=== PATIENT | female | born 1990 | race African-American/Black ===

== ENCOUNTER 2021-12-19 19:11 | Emergency (ER) | payer OTHER ==
[~2021-12-19] VITALS: Ht 157.5 cm; Wt 64.4 kg
[~2021-12-19 19:11] MED LIST: VENTOLIN HFA INH8 GM
[2021-12-19 19:54] LABS: URINE BILIRUBIN NEGATIVE (Negative); URINE BLOOD TRACE (Negative); URINE CLARITY CLOUDY; URINE COLOR YELLOW; URINE GLUCOSE-RANDOM* NEGATIVE (Negative); URINE KETONES TRACE (Negative); URINE PROTEIN (DIPSTICK) 1+ (Negative); URINE SPECIFIC GRAVITY >= 1.030 (1.005-1.035)
[2021-12-19 19:56] LABS: URINE LEUKOCYTES-REFLEX 3+ (Negative); URINE NITRITE-REFLEX POSITIVE (Negative)
[2021-12-19 20:06] LABS: BACTERIA-REFLEX >30 Many /HPF (None Seen); SQUAMOUS 4-10 Moderate /LPF (0-3); URINE WBC-REFLEX >25 Many /HPF (0-5)
[2021-12-19 20:07] LABS: URINE RBC 1-2 Rare /HPF (NONE SEEN)
[2021-12-19 20:08] LABS: CASTS None Seen /LPF (None Seen); CRYSTALS None Seen /LPF (None Seen)
[2021-12-19] MEDS ORDERED: MACROBID 100 M100 MG PO (20:10)
[2021-12-19] MEDS ORDERED: DOXYCYCLINE 10100 M2 PO (20:10)
[2021-12-19 20:31] VITALS: BP 129/79
== END 2021-12-19 20:35 | disposition home or self-care (01) ==
LOC: ER
PROVIDERS: Physician Assistant
DX: N30.01 Acute cystitis with hematuria (principal); N39.0 Urinary tract infection, site not specified